=== PATIENT | male | born 1995 | race Caucasian/White ===

== ENCOUNTER 2017-06-20 12:22 | Outpatient (CLI) | payer OTHER | END 2017-06-20 12:23 | disposition home or self-care (01) | LOC: BICULT 12:22 | PROVIDERS: ATTEND Student in an Organized Health Care Education/Training Program | DX: N50.9 Disorder of male genital organs, unspecified (principal); N43.3 Hydrocele, unspecified; N50.3 Cyst of epididymis | CPT/HCPCS: 76870; 93976 ==